=== PATIENT | male | born 1935 | race Caucasian/White ===

== ENCOUNTER → 2017-03-23 | Outpatient (CLI) | payer OTHER | LOC: PUL 08:20 → EDSTATUS 11:07 → PUL 11:11 | DX: Z92.29 Personal history of other drug therapy (principal) ==

== ENCOUNTER → 2017-11-23 | Outpatient (CLI) | payer OTHER ==
[~2017-11-23] VITALS: Ht 177.8 cm; Wt 68.9 kg
[~2017-11-23] MED LIST: ACETAMINOPHEN-1 EAC1 PO; BACLOFEN 10MG T10 MG PO; COUMADIN 3 MG TA3 M1 PO; DILTIAZEM ER180 MG PO; LOSARTAN-HCTZ1 EAC2 PO; PACERONE 200 M200 M1 PO; SYNTHROID50 MCG PO; VOLTAREN GEL 1100 G1 TOP
--- NOTE | ~2017-11-23 | HPC ---
[facility] [address] [place] [address] PAIN MANAGEMENT CONSULTATION Name: SALINA CASTANEDA Room #: REG [facility]#: [id number] Admission: 11/23/17 Attend Phys: Mainor Gresham DO Discharge: Date of : 33 Report #: [id number] THIS REPORT FOR: //name// CC: Cullen Gresham DATE OF SERVICE: 11/23/2017 HISTORY OF PRESENT ILLNESS: The patient is a pleasant 82-year-old gentleman seen in consultation at the request of Dr. Quintanilla for evaluation of pain in left scapula that has been present for 45 days, getting worse. The patient denies antecedent trauma and overuse. Tried Medrol Dosepak with really no change. Tramadol unfortunately caused some cognitive impairment, dizziness. He fell and now has some bruising on the right shoulder. He notes the pain is exacerbated with any and all activity. He does get some relief when he is recumbent. He describes continuous pain when upright, constant, burning, shooting, sharp pain, rates anywhere from 8-10 on a VAS. REVIEW OF SYSTEMS: Complete review of systems attached to chart and gone over with the patient. He is , does not smoke, drink alcohol to excess. History of hypertension, history of atrial fibrillation. MEDICATIONS: Medication list was reconciled today including diltiazem, Pacerone, losartan, warfarin for a-fib, levothyroxine for chronic hypothyroidism. Remaining review of systems is noncontributory. The patient has been retired since 1998. Pain impact score is quite high at 56/70. PHYSICAL EXAMINATION: GENERAL: Reveals 5 feet 10 inches, 152 pounds gentleman, BMI is 21.8 kilograms per meter squared. VITAL SIGNS: Blood pressure 134/65, pulse 72, respirations are 16. NEUROLOGIC: Cranial nerves 2-12 are grossly intact. He is alert and oriented to person, place and time, judged to be a reasonable historian. NECK: Cervical range of motion is significantly limited cervical extension, decreased range of motion in the right shoulder chronically as well as some ecchymosis in this area from the recent fall. Left arm shows full range of motion. HEART: Regular at this time. History of atrial fibrillation. Does have grade 2-3/6 systolic ejection murmur. LUNGS: Clear to auscultation. MUSCULOSKELETAL: Gait is tandem. Lower extremity strength is preserved. Point [address] [address] PAIN MANAGEMENT CONSULTATION Name: SALINA CASTANEDA [facility]: [facility] [id number] Admission: 11/23/17 Attend Phys: Mainor Gresham DO Discharge: Date of : 34 Report #: [id number] tenderness over the right trapezius and splenius capitis. Skin integument is intact. Hand grasp is symmetric. Deep tendon reflexes are preserved. DIAGNOSTIC STUDIES: There is a chest CT scan, which does show some small bilateral benign-appearing pulmonary nodules. Prior granulomatous infection. He does have extensive atherosclerotic vascular disease. Thoracic spine x-rays are essentially unremarkable. ASSESSMENT: Symptomatic myofascial pain by clinical exam and history. RECOMMENDATIONS: Trigger point injections x 2 today. We will trial some topical Voltaren gel to this area. We talked about stretching and range of motion. Follow up in 2 weeks for reevaluation. If symptoms continue, we may consider MRI of the cervical spine for an atypical presentation of cervical spondylosis. Thank you for allowing me to participate in this patient's care. I will keep abreast of his progress. PROCEDURE NOTE PROCEDURE: Trigger point injections x 2, right splenius capitis and right trapezius. DESCRIPTION OF PROCEDURE: After informed consent was obtained, the patient was placed in the seated position. Skin overlying the tender points was cleansed with alcohol. Using a 25-gauge needle, 20 mg triamcinolone plus 4 mL of 0.5% preservative-free bupivacaine was injected into and around the 2 discrete triggers. Needle was removed. The area was cleansed and Band-Aid was applied. The patient monitored for an appropriate period of time, discharged in good and stable condition. <ELECTRONICALLY SIGNED> By: Mainor Gresham DO 11/29/17 0744 [id number] Mainor Gresham DO /nt
[2017-11-23 13:50] VITALS: BP 134/65
== END | disposition home or self-care (01) ==
LOC: PAIN 07:08
DX: M79.1 Myalgia (principal); I70.90 Unspecified atherosclerosis; I48.91 Unspecified atrial fibrillation; E03.9 Hypothyroidism, unspecified; Z79.899 Other long term (current) drug therapy; Z98.890 Other specified postprocedural states

== ENCOUNTER → 2017-12-15 | Outpatient (CLI) | payer OTHER ==
[~2017-12-15] VITALS: Ht 177.8 cm; Wt 70.2 kg
--- NOTE | ~2017-12-15 | HPC ---
[facility] [address] [place] [address] PAIN MANAGEMENT CONSULTATION Name: LEONELJERAMIEELIZABETH Suarez [id number] Admission: 12/15/17 Attend Phys: Mainor Gresham DO Discharge: Date of : 34 Report #: [id number] THIS REPORT FOR: //name// CC: Akira Gresham DATE OF SERVICE: 12/15/2017 The patient is an 82-year-old gentleman seen in consultation 11/23/2017, diagnosed with symptomatic myofascial pain. Was given trigger point injections x 2, right splenius capitis and right trapezius. Returns to pain clinic today noting the injection has afforded incremental relief, but pain is beginning to recur. Pain is very specifically located single trigger point about 1-1.5 cm diameter, immediately lateral to the spinous process at about C7. Appears to be in the inferior cervical paravertebral muscles. Pain is exacerbated with palpation, though cervical range of motion, upper extremity strength do not exacerbate pain. Incidentally, he has on the contralateral, i.e., right side a clavicular fracture, which is healing. ASSESSMENT: Symptomatic myofascial pain, incremental relief with 1 injection. RECOMMENDATION: Repeat trigger point injections today. Given proximity of the dome of the lung, we elected to do this under fluoroscopy. PROCEDURE NOTE: After written informed consent was obtained, the patient was taken to the fluoroscopy suite, placed in the prone position. Trigger point was identified. Using fluoroscopy, could see that it was over the lateral aspect of the lamina at C7 inferiorly. AP projection noted this appeared to be superior to the lung. Area was cleansed with alcohol using a 27-gauge needle. The needle was advanced to contact the lateral aspect of the posterior C7 lamina. The patient experienced reproduction of pain at this level. A 30 mg triamcinolone plus 3 mL of a 50:50 mix of 0.5% preservative-free bupivacaine plus 1:200,000 epinephrine/1.5% Xylocaine was injected. Needle was removed, area was cleansed, Band-Aids applied. The patient monitored for an appropriate period of time, discharged in good stable condition noting pain was absent on discharge. Follow up simply as needed, use ice the area today and we talked about stretching. <ELECTRONICALLY SIGNED> By: Mainor Gresham DO 12/18/17 [id number] Mainor Gresham DO /nt
[2017-12-15 13:08] VITALS: BP 106/58
== END | disposition home or self-care (01) ==
LOC: PAIN 12-08 07:48
DX: M79.1 Myalgia (principal); G89.29 Other chronic pain; Z98.890 Other specified postprocedural states; Z79.01 Long term (current) use of anticoagulants; Z79.899 Other long term (current) drug therapy

== ENCOUNTER → 2019-09-24 | Outpatient (CLI) | payer OTHER | LOC: SJCVC 08:54 | DX: Z51.81 Encounter for therapeutic drug level monitoring (principal); Z79.01 Long term (current) use of anticoagulants ==

== ENCOUNTER → 2019-10-22 | Outpatient (CLI) | payer OTHER | LOC: SJCVC 09:14 | DX: Z51.81 Encounter for therapeutic drug level monitoring (principal); I48.0 Paroxysmal atrial fibrillation; I11.0 Hypertensive heart disease with heart failure; I50.9 Heart failure, unspecified; I25.10 Atherosclerotic heart disease of native coronary artery without angina pectoris; E78.5 Hyperlipidemia, unspecified; Z79.01 Long term (current) use of anticoagulants ==

== ENCOUNTER → 2019-11-04 | Outpatient (CLI) | payer OTHER | LOC: SJCVCIMAG 09:10 | DX: I08.8 Other rheumatic multiple valve diseases (principal); I44.7 Left bundle-branch block, unspecified; I48.0 Paroxysmal atrial fibrillation; I11.0 Hypertensive heart disease with heart failure; I50.32 Chronic diastolic (congestive) heart failure; E78.5 Hyperlipidemia, unspecified; Z79.01 Long term (current) use of anticoagulants; Z79.899 Other long term (current) drug therapy ==

== ENCOUNTER → 2020-05-11 | Outpatient (CLI) | payer OTHER | LOC: SJCVC 09:40 | PROVIDERS: ATTEND Internal Medicine | DX: I44.0 Atrioventricular block, first degree (principal); I44.7 Left bundle-branch block, unspecified; R94.31 Abnormal electrocardiogram [ECG] [EKG]; I48.0 Paroxysmal atrial fibrillation; I11.0 Hypertensive heart disease with heart failure; I50.32 Chronic diastolic (congestive) heart failure; I35.0 Nonrheumatic aortic (valve) stenosis; E78.5 Hyperlipidemia, unspecified; Z79.01 Long term (current) use of anticoagulants; Z91.89 Other specified personal risk factors, not elsewhere classified; Z79.899 Other long term (current) drug therapy ==

== ENCOUNTER → 2020-07-15 | Outpatient (CLI) | payer OTHER | LOC: SJCVC 08:47 | PROVIDERS: ATTEND Internal Medicine | DX: Z51.81 Encounter for therapeutic drug level monitoring (principal); I48.91 Unspecified atrial fibrillation; I25.10 Atherosclerotic heart disease of native coronary artery without angina pectoris; I11.0 Hypertensive heart disease with heart failure; I42.9 Cardiomyopathy, unspecified; I50.32 Chronic diastolic (congestive) heart failure; E78.5 Hyperlipidemia, unspecified; Z79.01 Long term (current) use of anticoagulants; Z79.899 Other long term (current) drug therapy ==

== ENCOUNTER → 2020-08-24 | Outpatient (CLI) | payer OTHER | LOC: SJCVC 14:25 | PROVIDERS: ATTEND Internal Medicine | DX: Z51.81 Encounter for therapeutic drug level monitoring (principal); I48.91 Unspecified atrial fibrillation; I25.10 Atherosclerotic heart disease of native coronary artery without angina pectoris; I11.0 Hypertensive heart disease with heart failure; I50.32 Chronic diastolic (congestive) heart failure; Z79.01 Long term (current) use of anticoagulants ==

== ENCOUNTER → 2020-09-22 | Outpatient (CLI) | payer OTHER | LOC: SJCVC 09:25 | PROVIDERS: ATTEND Internal Medicine | DX: Z51.81 Encounter for therapeutic drug level monitoring (principal); Z79.01 Long term (current) use of anticoagulants; Z79.899 Other long term (current) drug therapy ==

== ENCOUNTER → 2020-11-11 | Outpatient (CLI) | payer OTHER | LOC: SJCVC 09:56 | PROVIDERS: ATTEND Internal Medicine | DX: R94.31 Abnormal electrocardiogram [ECG] [EKG] (principal); I44.0 Atrioventricular block, first degree; I44.7 Left bundle-branch block, unspecified; I35.0 Nonrheumatic aortic (valve) stenosis; I48.0 Paroxysmal atrial fibrillation; I11.0 Hypertensive heart disease with heart failure; I50.32 Chronic diastolic (congestive) heart failure; E78.5 Hyperlipidemia, unspecified; I25.5 Ischemic cardiomyopathy; Z79.01 Long term (current) use of anticoagulants; Z91.89 Other specified personal risk factors, not elsewhere classified; Z79.899 Other long term (current) drug therapy; Z88.8 Allergy status to other drugs, medicaments and biological substances; Z72.89 Other problems related to lifestyle ==

== ENCOUNTER → 2020-12-10 | Outpatient (CLI) | payer OTHER | LOC: SJCVC 10:29 | PROVIDERS: ATTEND Internal Medicine | DX: Z51.81 Encounter for therapeutic drug level monitoring (principal); I48.91 Unspecified atrial fibrillation; I25.10 Atherosclerotic heart disease of native coronary artery without angina pectoris; I25.5 Ischemic cardiomyopathy; I11.0 Hypertensive heart disease with heart failure; I50.32 Chronic diastolic (congestive) heart failure; E78.5 Hyperlipidemia, unspecified; Z79.01 Long term (current) use of anticoagulants ==

== ENCOUNTER → 2021-01-14 | Outpatient (CLI) | payer OTHER | LOC: SJCVC 09:30 | PROVIDERS: ATTEND Internal Medicine | DX: Z51.81 Encounter for therapeutic drug level monitoring (principal); Z79.01 Long term (current) use of anticoagulants ==

== ENCOUNTER → 2021-02-11 | Outpatient (CLI) | payer OTHER | LOC: SJCVC 10:47 | PROVIDERS: ATTEND Internal Medicine | DX: Z51.81 Encounter for therapeutic drug level monitoring (principal); I25.10 Atherosclerotic heart disease of native coronary artery without angina pectoris; I50.9 Heart failure, unspecified; I11.0 Hypertensive heart disease with heart failure; I48.0 Paroxysmal atrial fibrillation; I42.8 Other cardiomyopathies; Z79.01 Long term (current) use of anticoagulants; Z79.899 Other long term (current) drug therapy; Z88.8 Allergy status to other drugs, medicaments and biological substances; Z72.89 Other problems related to lifestyle ==

== ENCOUNTER → 2021-03-11 | Outpatient (CLI) | payer OTHER | LOC: SJCVC 09:20 | PROVIDERS: ATTEND Internal Medicine | DX: Z51.81 Encounter for therapeutic drug level monitoring (principal); I35.0 Nonrheumatic aortic (valve) stenosis; I48.91 Unspecified atrial fibrillation; I65.23 Occlusion and stenosis of bilateral carotid arteries; I25.5 Ischemic cardiomyopathy; I11.0 Hypertensive heart disease with heart failure; I50.32 Chronic diastolic (congestive) heart failure; E78.5 Hyperlipidemia, unspecified; Z79.01 Long term (current) use of anticoagulants ==

== ENCOUNTER → 2021-05-20 | Outpatient (CLI) | payer OTHER | LOC: SJCVCIMAG 08:10 | PROVIDERS: ATTEND Internal Medicine | DX: I08.8 Other rheumatic multiple valve diseases (principal); R94.31 Abnormal electrocardiogram [ECG] [EKG]; I44.7 Left bundle-branch block, unspecified; I44.0 Atrioventricular block, first degree; I11.0 Hypertensive heart disease with heart failure; I48.0 Paroxysmal atrial fibrillation; I50.32 Chronic diastolic (congestive) heart failure; I25.10 Atherosclerotic heart disease of native coronary artery without angina pectoris; E78.5 Hyperlipidemia, unspecified; Z79.01 Long term (current) use of anticoagulants; Z91.89 Other specified personal risk factors, not elsewhere classified; Z72.89 Other problems related to lifestyle; Z88.8 Allergy status to other drugs, medicaments and biological substances; Z79.899 Other long term (current) drug therapy; Z91.040 Latex allergy status ==

== ENCOUNTER → 2021-07-23 | Outpatient (CLI) | payer OTHER | LOC: SJCVCIMAG 08:01 | PROVIDERS: ATTEND Internal Medicine | DX: N28.1 Cyst of kidney, acquired (principal); I10 Essential (primary) hypertension ==